=== PATIENT | female | born 1955 | race Caucasian/White ===

== ENCOUNTER → 2017-08-17 | Outpatient (CLI) | payer OTHER, MEDICAID ==
--- NOTE | 2017-08-20 16:13 | RAD ---
HISTORY: Preop for shoulder surgery Study: PA and lateral views of the chest. Comparison: None. Findings: Cardiomegaly. No focal consolidations, pleural effusions or pneumothorax. Osseous structures demonstr ate no acute abnormality. IMPRESSION: 1. No acute cardiopulmonary process. Reported By:
== END ==
LOC: LAB 10:51
PROVIDERS: ATTEND Orthopaedic Surgery
DX: Z01.818 Encounter for other preprocedural examination (principal); Z79.899 Other long term (current) drug therapy; Z11.8 Encounter for screening for other infectious and parasitic diseases; Z79.01 Long term (current) use of anticoagulants; S42.322K Displaced transverse fracture of shaft of humerus, left arm, subsequent encounter for fracture with nonunion; X58.XXXD Exposure to other specified factors, subsequent encounter; Z01.810 Encounter for preprocedural cardiovascular examination; Z01.811 Encounter for preprocedural respiratory examination
CPT/HCPCS: 36415; 71020; 80053; 81001; 85025; 85610; 85652; 85730; 86140; 86850; 86900; 86901; 87640; 87641; 93005; 93010

== ENCOUNTER 2017-08-23 08:07 | Day surgery (SDC) | payer OTHER, MEDICAID ==
[2017-08-17 11:38] LABS: BILIRUBIN,URINE NEGATIVE (NEGATIVE); BLOOD/HEMOGLOBIN,URINE NEGATIVE (NEGATIVE); GLUCOSE, URINE NEGATIVE (NEGATIVE); KETONES,URINE NEGATIVE (NEGATIVE); LEUKOCYTE ESTERASE ,URINE 1+ (NEGATIVE); NITRITES,URINE NEGATIVE (NEGATIVE); PROTEIN,URINE NEGATIVE (NEGATIVE); UROBILINOGEN,URINE NORMAL (NORMAL)
[2017-08-17 11:39] LABS: BASOPHILS # (AUTO) 0.1 X10^3/uL (0.0-0.1); BASOPHILS % (AUTO) 0.7 % (0.2-1.0); EOSINOPHILS # (AUTO) 0.2 x10^3/uL (0.0-0.2); HEMATOCRIT 40.7 % (36.0-47.0); HEMOGLOBIN 14.1 g/dL (12.0-16.0); LYMPHOCYTES # (AUTO) 1.7 X10^3/uL (1.3-2.9); LYMPHOCYTES % (AUTO) 21.7 % (21.0-51.0); MEAN CORPUSCULAR HEMOGLOBIN 31.9 pg (27.0-34.0); MEAN CORPUSCULAR HGB CONC 34.6 g/dL (33.0-35.0); MEAN CORPUSCULAR VOLUME 92.3 fL (80.0-100.0); MEAN PLATELET VOLUME 9.1 fL (7.4-11.0); MONOCYTES # (AUTO) 0.6 x10^3/uL (0.3-0.8); MONOCYTES % (AUTO) 7.6 % (0.0-13.0); NEUTROPHILS # (AUTO) 5.3 x10^3/uL (2.2-4.8); PLATELET COUNT 172 X10^3/uL (150.0-450.0); RED BLOOD COUNT 4.41 X10^6/uL (3.5-5.4); RED CELL DISTRIBUTION WIDTH 12.3 % (11.6-16.5); WHITE BLOOD COUNT 7.9 X10^3/uL (3.6-10.0)
[2017-08-17 11:46] LABS: APPEARANCE,URINE CLEAR (CLEAR); COLOR,URINE YELLOW (YELLOW); RBC,URINE NONE SEEN /HPF (NEGATIVE); SQUAMOUS EPITHELIAL CELL,UR RARE /HPF (NEGATIVE)
[2017-08-17 11:47] LABS: BACTERIA,URINE TRACE /HPF (NEGATIVE)
[2017-08-17 12:08] LABS: ERYTHROCYTE SEDIMENTATION RATE 5 MM/HOUR (0-20)
[2017-08-17 12:38] LABS: ALANINE AMINOTRANSFERASE 120 Units/L (12-78); ALKALINE PHOSPHATASE 119 Units/L (46-116); ASPARTATE AMINO TRANSFERASE 52 Units/L (15-37); BLOOD UREA NITROGEN 10 mg/dL (7-18); CALCIUM 9.3 mg/dL (8.5-10.1); CARBON DIOXIDE 34.1 mmol/L (21-32); CHLORIDE 99 mmol/L (98-107); COR NA(FOR HYPERGLY) 138 mmol/L (136-145); CREATININE 0.76 mg/dL (0.55-1.02); SODIUM 137 mmol/L (136-145); TOTAL PROTEIN 7.6 g/dL (6.4-8.2); eGFR BLACK RACES > 60 (>60); eGFR NON BLACK RACES > 60 (>60)
[~2017-08-23 08:07] MED LIST: BACTROBAN OINT ONE
[2017-08-23] MEDS ORDERED: NS 50 ML IV + SPIKE MINIBAG* 100 ML IV ONE (09:10)
[2017-08-23] MEDS ORDERED: D5 LR 1000 ML 1,000 ML IV ONE (09:10)
[2017-08-23] MEDS ORDERED: ANCEF VIAL 1 GM ONE (09:11)
[2017-08-23] MEDS ORDERED: NAROPIN 0.75% EPI ONE (10:13)
[2017-08-23] MEDS ORDERED: FENTANYL INJ 100 mcg ONE (10:14)
[2017-08-23] MEDS ORDERED: XYLOCAINE 1% and EPINEPHRINE 1:100,000 ONE (10:14)
[2017-08-23] MEDS ORDERED: MARCAINE 0.25% INJ ONE (10:46)
[2017-08-23] MEDS ORDERED: DILAUDID INJ ONE ×2 (11:44→16:09)
[2017-08-23] MEDS ORDERED: FENTANYL INJ 250 mcg ONE (11:44)
[2017-08-23] MEDS ORDERED: NS IRRIGATION 1000 ML 1,000 ML with BACITRACIN VIAL 50,000 UNT IR ONE ×4 (12:00→15:05)
[2017-08-23] MEDS ORDERED: NS 1000 ML 1,000 ML ONE (12:39)
[2017-08-23] MEDS ORDERED: LR 1000 ML IV 1,000 ML IV ONE (13:51)
[2017-08-23] MEDS: DILAUDID INJ IVP PRN ×4 (15:55→16:22)
[2017-08-23] MEDS ORDERED: PHENERGAN INJ 25 MG IVP PRN (15:56)
[2017-08-23] MEDS ORDERED: BENADRYL INJ 50 MG VIAL IVP PRN (15:56)
[2017-08-23] MEDS ORDERED: REGLAN INJ 10 MG VIAL IVP PRN (15:56)
[2017-08-23] MEDS ORDERED: ZOFRAN INJ 4 MG VIAL IVP PRN (15:56)
[2017-08-23] MEDS ORDERED: NEOSTIGMINE INJ ONE (15:58)
[2017-08-23] MEDS ORDERED: ULTANE GAS IN ONE (15:58)
[2017-08-23] MEDS ORDERED: EPHEDRINE SULFATE INJ ONE (15:58)
[2017-08-23] MEDS ORDERED: XYLOCAINE 2 % (PLAIN) ONE (15:58)
[2017-08-23] MEDS ORDERED: NORCURON INJ 10 MG VIAL ONE (15:58)
[2017-08-23] MEDS ORDERED: DIPRIVAN VIAL ONE (15:58)
[2017-08-23] MEDS ORDERED: LTA KIT LIDOCAINE 4% ONE (15:58)
[2017-08-23] MEDS ORDERED: VERSED ONE (15:58)
[2017-08-23] MEDS ORDERED: ROBINUL ONE (15:58)
[2017-08-23] MEDS ORDERED: QUELICIN (OR ANECTINE) ONE (15:58)
[2017-08-23] MEDS: PERCOCET TAB 5/325 MG PO PRN (20:14)
[2017-08-24] MEDS: PERCOCET TAB 5/325 MG PO PRN ×3 (00:51→11:51)
[2017-08-24 05:43] LABS: BLOOD UREA NITROGEN 7 mg/dL (7-18); CALCIUM 8.6 mg/dL (8.5-10.1); CARBON DIOXIDE 31.6 mmol/L (21-32); CHLORIDE 104 mmol/L (98-107); CREATININE 0.69 mg/dL (0.55-1.02); SODIUM 142 mmol/L (136-145); eGFR BLACK RACES > 60 (>60); eGFR NON BLACK RACES > 60 (>60)
[2017-08-24 06:13] LABS: BASOPHILS % (AUTO) 0.4 % (0.2-1.0); EOSINOPHILS % (AUTO) 0.4 % (0.9-2.9); HEMATOCRIT 37.5 % (36.0-47.0); HEMOGLOBIN 12.8 g/dL (12.0-16.0); LYMPHOCYTES % (AUTO) 22.3 % (21.0-51.0); MEAN CORPUSCULAR HEMOGLOBIN 31.4 pg (27.0-34.0); MEAN CORPUSCULAR HGB CONC 34.1 g/dL (33.0-35.0); MEAN CORPUSCULAR VOLUME 92.2 fL (80.0-100.0); MEAN PLATELET VOLUME 9.3 fL (7.4-11.0); MONOCYTES # (AUTO) 0.8 x10^3/uL (0.3-0.8); MONOCYTES % (AUTO) 9.5 % (0.0-13.0); NEUTROPHILS % (AUTO) 67.4 % (42.0-75.0); PLATELET COUNT 150 X10^3/uL (150.0-450.0); RED BLOOD COUNT 4.07 X10^6/uL (3.5-5.4); RED CELL DISTRIBUTION WIDTH 12.9 % (11.6-16.5); WHITE BLOOD COUNT 8.8 X10^3/uL (3.6-10.0)
[2017-08-24 14:34] VITALS: BP 140/85
--- NOTE | 2017-08-25 11:10 | RAD ---
HISTORY: Postop ORIF left humerus fracture Study: 2 views of the left Comparison: None Findings: Patient has undergone ORIF of the left humerus. Hardware appears appropriately positioned . No acute fractures or dislocations. Expected subcutaneous emphysema and surgical skin morteza. IMPRESSION: 1. Expected postoperative appearance of the left humerus. Reported By:
== END 2017-08-24 14:35 | disposition home or self-care (01) ==
LOC: SURG1 08:07 → MED/SURG 17:07 → SURG1 08-24 14:35
PROVIDERS: ATTEND Orthopaedic Surgery
PROC: 0PSG06Z Reposition Left Humeral Shaft with Intramedullary Internal Fixation Device, Open Approach (ICD-10-PCS; principal; 2017-08-23 09:30)
DX: S42.322A Displaced transverse fracture of shaft of humerus, left arm, initial encounter for closed fracture (principal); X58.XXXA Exposure to other specified factors, initial encounter
CPT/HCPCS: 36410; 36415; 36430; 64415; 73060; 76000; 80048; 80053; 81001; 85025; 85610; 85652; 85730; 86140; 86850; 86900; 86901; 86922; 87640; 87641; 94640; 94762; A4216; A4222; P9016; S0020; J0330; J0690; J1170; J2001; J2250; J2710; J3010; J3490; J7120